=== PATIENT | female | born 1995 | race Two or more races ===

== ENCOUNTER 2024-06-26 14:29 | Emergency (ER) | payer OTHER ==
[~2024-06-26] VITALS: Ht 170.2 cm; Wt 69.4 kg
[2024-06-26 15:00] LABS: BASOPHILS % (AUTO) 0.6 % (0.0-2.0); EOSINOPHILS # (AUTO) 0.1 K/uL (0.0-0.7); EOSINOPHILS % (AUTO) 2.9 % (0.0-6.0); HEMATOCRIT 43 % (33-45); HEMOGLOBIN 14.9 g/dL (11.5-14.8); LYMPHOCYTES # (AUTO) 1.5 K/uL (0.8-4.8); LYMPHOCYTES % (AUTO) 30.9 % (20.0-44.0); MEAN CORPUSCULAR HEMOGLOBIN 34 PG (26.0-33.0); MEAN CORPUSCULAR HGB CONC 34 g/dl (31.0-36.0); MEAN CORPUSCULAR VOLUME 98 fL (82-100); MONOCYTES # (AUTO) 0.3 K/uL (0.1-1.30); NEUTROPHILS # (AUTO) 2.9 K/uL (1.8-8.9); NEUTROPHILS % (AUTO) 58.6 % (43.0-81.0); PLATELET COUNT (AUTO) 397 K/uL (150-450); RED BLOOD CELL COUNT(AUTO) 4.41 MIL/uL (4.0-5.2)
[2024-06-26 15:10] LABS: CALCIUM, SERUM 8.5 mg/dL (8.5-10.1); CARBON DIOXIDE 25 mmol/L (21-32); CHLORIDE 108 mmol/L (98-107); CREATININE 0.5 mg/dL (0.6-1.3); GLUCOSE 106 mg/dL (74-106); POTASSIUM 3.8 mmol/L (3.5-5.1); SODIUM SERUM 143 mmol/L (136-145); UREA NITROGEN, BLOOD 7 mg/dL (7-18)
[2024-06-26 15:14] LABS: APPEARANCE,URINE CLEAR (CLEAR); BILIRUBIN,URINE NEGATIVE (NEGATIVE); BLOOD, URINE NEGATIVE Ery/uL (NEGATIVE); COLOR,URINE YELLOW (YELLOW); KETONES,URINE NEGATIVE (NEGATIVE); LEUKOCYTE ESTERASE ,URINE NEGATIVE (NEGATIVE); NITRITE, URINE POSITIVE (NEGATIVE); PH,URINE 5.5 (5.0-8.0); PROTEIN,URINE NEGATIVE (NEGATIVE); UGLUCOSE NEGATIVE (NEGATIVE); UROBILINOGEN,URINE 0.2 EU/dL (0.2)
[2024-06-26 15:15] LABS: ALANINE AMINOTRANSFERASE 151 U/L (12-78); ALBUMIN 3.8 g/dL (3.4-5.0); ALKALINE PHOSPHATASE 74 U/L (46-116); ASPARTATE AMINOTRANSFERASE 127 U/L (15-37); BILIRUBIN,DIRECT 0.1 mg/dL (0.0-0.2); BILIRUBIN,TOTAL 0.3 mg/dL (0.2-1.0); TOTAL PROTEIN, SERUM 7.5 g/dL (6.4-8.2)
[2024-06-26 15:16] LABS: ACETAMINOPHEN <10 ug/ml (10-30)
[2024-06-26 15:17] LABS: AMPHETAMINE, URINE POSITIVE (NEGATIVE); BARBITURATE, URINE NEGATIVE (NEGATIVE); BENZODIAZEPINE, URINE NEGATIVE (NEGATIVE); CANNABINOID, URINE NEGATIVE (NEGATIVE); COCCAINE, URINE NEGATIVE (NEGATIVE); OPIATE, URINE NEGATIVE (NEGATIVE); PHENCYCLIDINE SCREEN,URINE NEGATIVE (NEGATIVE)
[2024-06-26 15:31] LABS: ALCOHOL, BLOOD 331 mg/dL (0-10)
[2024-06-26 15:37] LABS: ADD URINE CULTURE YES; BACTERIA,URINE 3+ /HPF (None Seen); RBC,URINE 0-2 /HPF (0-2); SQUAMOUS EPITHELIAL CELL,UR 0-2 /HPF (None Seen); WBC,URINE 0-2 /HPF (0-3)
[2024-06-26 20:27] VITALS: BP 120/70; TEMP 97; O2SAT 98
== END 2024-06-26 20:28 | disposition home or self-care (01) ==
LOC: ER 14:34
DX: F12.90 Cannabis use, unspecified, uncomplicated (principal); F13.10 Sedative, hypnotic or anxiolytic abuse, uncomplicated; F10.90 Alcohol use, unspecified, uncomplicated; Z60.2 Problems related to living alone; Z20.822 Contact with and (suspected) exposure to COVID-19; Y90.9 Presence of alcohol in blood, level not specified
CPT/HCPCS: 36415; 80048-TC; 80076-TC; 81001; 85025-TC; 87086-TC; G0480